=== PATIENT | male | born 2000 | race Caucasian/White ===

== ENCOUNTER 2020-01-04 08:58 | Emergency (ER) | payer OTHER ==
--- NOTE | 2020-01-04 10:17 | EDPHYS ---
Physician Documentation [facility] Name: Abdirizak Miller Age: 19 yrs Sex: Male : 2000 Arrival Date: 01/04/2020 Time: 09:03 Bed 5 Private MD: ED Physician Raghavendra May HPI: 01/03 10:19 This 19 yrs old Male presents to ER via Ambulatory with complaints of Knee kb Pain. 10:20 The patient presents with pain, that is acute, swelling, tenderness. The complaints kb affect the right knee. Context: The problem was sustained at home, resulted from an unknown cause, the patient can partially bear weight, uses crutches. Onset: The symptoms/episode began/occurred last night. Modifying factors: The symptoms are alleviated by nothing. the symptoms are aggravated by weight bearing. Associated signs and symptoms: Pertinent positives: swelling, warmth, Pertinent negatives calf tenderness, fever, nausea, numbness, rash, tingling, vomiting, weakness. Treatment prior to arrival includes: no previous treatment. Severity of symptoms: At their worst the symptoms were mild, moderate, in the emergency department the symptoms are unchanged. The patient has not experienced similar symptoms in the past. The patient has not recently seen a physician. Historical: - Allergies: 09:12 No Known Allergies; hb - Home Meds: 09:12 None [Active]; hb - PMHx: 09:12 None; hb - PSHx: 09:12 None; hb - Immunization history:: Adult Immunizations up to date. - Social history:: Smoking status: Patient denies any tobacco usage or history of. ROS: 10:13 Constitutional: Negative for fever, chills, and weight loss, ENT: Negative for injury, kb pain, and discharge, Neck: Negative for injury, pain, and swelling, Cardiovascular: Negative for chest pain, palpitations, and edema, Respiratory: Negative for shortness of breath, cough, wheezing, and pleuritic chest pain, Abdomen/GI: Negative for abdominal pain, nausea, vomiting, diarrhea, and constipation, Back: Negative for injury and pain, Neuro: Negative for headache, weakness, numbness, tingling, and seizure. 10:13 MS/extremity: Positive for erythema, pain, swelling, tenderness, warmth, of the right knee. Exam: 10:19 Constitutional: This is a well developed, well nourished patient who is awake, alert, kb and in no acute distress. Head/Face: Normocephalic, atraumatic. ENT: Nares patent. No nasal discharge, no septal abnormalities noted. Tympanic membranes are normal and external auditory canals are clear. Oropharynx with no redness, swelling, or masses, exudates, or evidence of obstruction, uvula midline. Mucous membranes moist. Neck: Trachea midline, no thyromegaly or masses palpated, and no cervical lymphadenopathy. Supple, full range of motion without nuchal rigidity, or vertebral point tenderness. No Meningismus. Chest/axilla: Normal chest wall appearance and motion. Nontender with no deformity. No lesions are appreciated. Cardiovascular: Regular rate and rhythm with a normal S1 and S2. No gallops, murmurs, or rubs. Normal PMI, no JVD. No pulse deficits. Respiratory: Lungs have equal breath sounds bilaterally, clear to auscultation and percussion. No rales, rhonchi or wheezes noted. No increased work of breathing, no retractions or nasal flaring. Abdomen/GI: Soft, non-tender, with normal bowel sounds. No distension or tympany. No guarding or rebound. No evidence of tenderness throughout. Back: No spinal tenderness. No costovertebral tenderness. Full range of motion. Neuro: Awake and alert, GCS 15, oriented to person, place, time, and situation. Cranial nerves II-XII grossly intact. Motor strength 5/5 in all extremities. Sensory grossly intact. Cerebellar exam normal. Normal gait. 10:19 Musculoskeletal/extremity: Extremities: grossly normal except: noted in the right knee: erythema, pain, swelling, tenderness, ROM: intact in all extremities, Circulation is intact in all extremities. Sensation intact. Weight bearing: can bear weight with assistance only, uses crutches. 10:19 Skin: Appearance: normal except for affected area, Color: erythematous, Temperature: hot. Vital Signs: 09:11 BP 126 / 75; Pulse 80; Resp 16; Temp 97.6; Pulse Ox 100% ; Weight 96.16 kg; Height 5 hb ft. 10 in. (177.80 cm); Pain 7/10; 09:11 Body Mass Index 30.42 (96.16 kg, 177.80 cm) hb MDM: 09:22 Patient medically screened. kb 10:14 Data reviewed: vital signs, nurses notes. Data interpreted: Pulse oximetry: on room air kb is 100 %. Interpretation: normal. Counseling: I had a detailed discussion with the patient and/or guardian regarding: the historical points, exam findings, and any diagnostic results supporting the discharge/admit diagnosis, radiology results, the need for outpatient follow up, a family practitioner, a orthopedic surgeon, to return to the emergency department if symptoms worsen or persist or if there are any questions or concerns that arise at home. ED course: Full ROM on right knee on exam.. 01/03 09:40 Order name: Knee Right 3 View XRAY kb Administered Medications: 10:16 Drug: Procious (7.5 mg-325 mg) 1 tabs Route: PO; hb 10:31 Follow up: Response: Medication administered at discharge. hb Disposition: 13:32 Co-signature as Attending Physician, Raghavendra May MD I agree with the assessment and kdr plan of care. Disposition: 01/04/20 10:16 Discharged to Home. Impression: Pain in right knee, Other bursitis of knee, right knee. - Condition is Stable. - Discharge Instructions: Bursitis, [id number], Knee Pain, Qwll-qu-Mrdo. - Prescriptions for Clindamycin HCl 300 mg Oral Capsule - take 1 capsule by ORAL route every 6 hours for 7 days; 28 capsule. Diclofenac Sodium 75 mg Oral Tablet, Delayed Release (E.C.) - take 1 tablet by ORAL route 2 times per day As needed; 30 tablet. - Medication Reconciliation Form, Thank You Letter, Antibiotic Education, Prescription Opioid Use form. - Follow up: Emergency Department; When: As needed; Reason: Worsening of condition. Follow up: Private Physician; When: 2 - 3 days; Reason: Recheck today's complaints, Continuance of care, Re-evaluation by your physician. Signatures: Dispatcher [employer] EDHannah Brooks, RIPENING ROOM OPERATOR-C RIPENING ROOM OPERATOR-Raghavendra Bardales MD MD [facility] Svitlana Mccurdy RN RN Corrections: (The following items were deleted from the chart) 10:01 09:41 CBC+H.LAB.BRZ ordered. EDMS EDMS 10: 09:41 BASIC METABOLIC PANEL+C.LAB.BRZ ordered. EDMS EDMS 10:01 09:41 C-REACTIVE PROTEIN+C.LAB.BRZ ordered. EDMS EDMS 10:01 09:41 WESTERGREN SEDRATE+H.LAB.BRZ ordered. EDMS EDMS 10:14 10:13 MS/extremity: Positive for pain, swelling, tenderness, warmth, of the right knee, kb kb 10:18 10:16 01/04/2020 10:16 Discharged to Home. Impression: Pain in right knee; Cellulitis kb of right lower limb. Condition is Stable. Forms are Medication Reconciliation Form, Thank You Letter, Antibiotic Education, Prescription Opioid Use. Follow up: Emergency Department; When: As needed; Reason: Worsening of condition. Follow up: Private Physician; When: 2 - 3 days; Reason: Recheck today's complaints, Continuance of care, Re-evaluation by your physician. kb 10:33 10:18 01/04/2020 10:16 Discharged to Home. Impression: Pain in right knee; Other hb bursitis of knee, right knee. Condition is Stable. Discharge Instructions: Bursitis, Grqi-im-Scno, Knee Pain, Fcqh-id-Qxbg. Prescriptions for Clindamycin HCl 300 mg Oral Capsule - take 1 capsule by ORAL route every 6 hours for 7 days; 28 capsule, Diclofenac Sodium 75 mg Oral Tablet, Delayed Release (E.C.) - take 1 tablet by ORAL route 2 times per day As needed; 30 tablet. and Forms are Medication Reconciliation Form, Thank You Letter, Antibiotic Education, Prescription Opioid Use. Follow up: Emergency Department; When: As needed; Reason: Worsening of condition. Follow up: Private Physician; When: 2 - 3 days; Reason: Recheck today's complaints, Continuance of care, Re-evaluation by your physician. kb
--- NOTE | 2020-01-04 10:17 | ER ---
Nurse's Notes [facility] Name: Abdirizak Miller Age: 19 yrs Sex: Male : 2000 Arrival Date: 01/04/2020 Time: 09:03 Bed 5 Private MD: Diagnosis: Pain in right knee;Other bursitis of knee, right knee Presentation: 01/03 09:11 Chief complaint: Right knee pain, swelling, and redness upon waking today. Denies hb injury. Coronavirus screen: The patient has NOT traveled to a country currently being monitored by the [facility] within the last 14 days. The patient has NOT had contact with any known and/or suspected case of coronavirus. Proceed with normal triage procedures. Ebola Screen: No symptoms or risks identified at this time. Initial Sepsis Screen: Does the patient meet any 2 criteria? No. Patient's initial sepsis screen is negative. Does the patient have a suspected source of infection? No. Patient's initial sepsis screen is negative. Risk Assessment: Do you want to hurt yourself or someone else? Patient reports no desire to harm self or others. 09:11 Method Of Arrival: Ambulatory hb 09:11 Acuity: SHANNAN 4 hb Triage Assessment: 09:12 General: Appears in no apparent distress. Behavior is calm, cooperative. Pain: Pain hb currently is 7 out of 10 on a pain scale. EENT: No signs and/or symptoms were reported regarding the EENT system. Neuro: Level of Consciousness is awake, alert, obeys commands, Oriented to person, place, time, situation. Cardiovascular: Capillary refill < 3 seconds Patient's skin is warm and dry. Respiratory: Airway is patent Respiratory effort is even, unlabored, Respiratory pattern is regular, symmetrical. GI: No signs and/or symptoms were reported involving the gastrointestinal system. : No signs and/or symptoms were reported regarding the genitourinary system. Derm: Skin is pink, warm \T\ dry. Musculoskeletal: swelling and redness noted to right knee. Historical: - Allergies: 09:12 No Known Allergies; hb - Home Meds: 09:12 None [Active]; hb - PMHx: 09:12 None; hb - PSHx: 09:12 None; hb - Immunization history:: Adult Immunizations up to date. - Social history:: Smoking status: Patient denies any tobacco usage or history of. Screenin:13 Abuse screen: Denies threats or abuse. Denies injuries from another. Nutritional hb screening: No deficits noted. Tuberculosis screening: No symptoms or risk factors identified. Fall Risk None identified. Assessment: 09:13 General: see triage assessment. hb 10:00 Reassessment: Patient appears in no apparent distress at this time. Patient and/or hb family updated on plan of care and expected duration. Pain level reassessed. Patient is alert, oriented x 3, equal unlabored respirations, skin warm/dry/pink. Vital Signs: 09:11 BP 126 / 75; Pulse 80; Resp 16; Temp 97.6; Pulse Ox 100% ; Weight 96.16 kg; Height 5 hb ft. 10 in. (177.80 cm); Pain 7/10; 09:11 Body Mass Index 30.42 (96.16 kg, 177.80 cm) hb ED Course: 09:03 Patient arrived in ED. mr 09:12 Triage completed. hb 09:13 Arm band placed on. hb 09:13 Patient has correct armband on for positive identification. Bed in low position. Call hb light in reach. Side rails up X 1. 09:22 Hannah Sandoval FNP-C [facility]. kb 09:22 Raghavendra May MD is Attending Physician. kb 09:23 Svitlana Mccurdy, ALEKSANDR is Primary Nurse. hb 10:13 Knee Right 3 View XRAY In Process Unspecified. EDMS 10:32 No provider procedures requiring assistance completed. Patient did not have IV access hb during this emergency room visit. Administered Medications: 10:16 Drug: Morgan (7.5 mg-325 mg) 1 tabs Route: PO; hb 10:31 Follow up: Response: Medication administered at discharge. hb Outcome: 10:16 Discharge ordered by . kb 10:32 Discharged to home with crutches, with family. hb 10:32 Condition: stable 10:32 Discharge instructions given to patient, Instructed on discharge instructions, follow up and referral plans. medication usage, Demonstrated understanding of instructions, follow-up care, medications, Prescriptions given X 2. 10:33 Patient left the ED. hb Signatures: Dispatcher [employer] EDMS Hannah Sandoval FNP-C FNP-Ckb Rivera, Mary mr Svitlana Mccurdy, RN RN hb Corrections: (The following items were deleted from the chart) 09:23 09:11 BP 126 / 75; Pulse 80bpm; Resp 60bpm; Pulse Ox 100%; Temp 97.6F; 96.16 kg; Height hb 5 ft. 10 in.; BMI: 30.4; Pain 7/10; hb
[2020-01-04] MEDS ORDERED: HYDROCODONE/APAP 7.5/325 MG TAB ONE (10:20)
[2020-01-04 10:44] VITALS: BP 126/75; TEMP 97.6; O2SAT 100
--- NOTE | 2020-01-04 10:45 | RAD REPORT ---
EXAM DESCRIPTION: RAD - Knee Right 3 View - 01/04/2020 10:10 am CLINICAL HISTORY: PAIN Pain and swelling COMPARISON: No comparisons FINDINGS: No fracture or dislocation. Moderate soft tissue swelling anterior to the patella and montano llar tendon.
[2020-01-07] MEDS ORDERED: SUCCINYLCHOLINE 20 MG/ML (10 ML) IV ONE (04:44)
[2020-01-07] MEDS ORDERED: ONDANSETRON 4 MG/2 ML VIAL ONE (04:44)
[2020-01-07] MEDS ORDERED: TETANUS & DIPHTHERIA TOX,ADULT 0.5 ML VIAL ONE (04:44)
== END 2020-01-04 10:33 | disposition home or self-care (01) ==
LOC: ER 08:58
DX: M71.561 Other bursitis, not elsewhere classified, right knee (principal)
CPT/HCPCS: 99283

== ENCOUNTER 2020-01-06 13:37 | Observation (INO) | payer OTHER ==
[2020-01-06] MEDS ORDERED: KETOROLAC 30 MG/ML INJ ONE (14:42)
[2020-01-06 15:00] LABS: Absolute Lymphocytes (CBC) 1.2 K/uL (0.7-4.9); Basophils % 0.4 % (0-1.3); Lymphocytes % 10.5 % (15.3-44.8); MPV 9.8 fL (7.6-11.3); RBC Red Blood Cell Count 4.86 M/uL (4.33-5.43)
--- NOTE | 2020-01-06 15:03 | ER ---
Nurse's Notes [facility] Name: Abdirizak Miller Age: 19 yrs Sex: Male : 2000 Arrival Date: 01/06/2020 Time: 13:40 Bed 5 Private MD: Diagnosis: Cellulitis of right lower limb;Other infective bursitis, right knee Presentation: 01/05 14:16 Chief complaint: Patient states: was seen here 2 days ago from bursitis on right knee em and was given clindamycin, reports more pain and redness to right leg, denies fever or feeling ill. Coronavirus screen: The patient has NOT traveled to a country currently being monitored by the [facility] within the last 14 days. The patient has NOT had contact with any known and/or suspected case of coronavirus. Ebola Screen: Patient negative for fever greater than or equal to 101.5 degrees Fahrenheit, and additional compatible Ebola Virus Disease symptoms Patient denies exposure to infectious person. Patient denies travel to an Ebola-affected area in the 21 days before illness onset. No symptoms or risks identified at this time. Initial Sepsis Screen: Does the patient meet any 2 criteria? HR > 90 bpm. Does the patient have a suspected source of infection? Yes: Skin breakdown/wound. Risk Assessment: Do you want to hurt yourself or someone else? Patient reports no desire to harm self or others. 14:16 Method Of Arrival: Ambulatory em 14:16 Acuity: SHANNAN 3 em Historical: - Allergies: 14:20 No Known Allergies; em - Home Meds: 14:20 diclofenac oral oral [Active]; clindamycin HCl 300 mg Oral cap [Active]; em - PMHx: 14:20 None; em - PSHx: 14:20 None; em - Immunization history:: Adult Immunizations up to date. - Social history:: Smoking status: Patient denies any tobacco usage or history of. Screenin:20 Abuse screen: Denies threats or abuse. Nutritional screening: No deficits noted. em Tuberculosis screening: No symptoms or risk factors identified. Fall Risk None identified. Assessment: 14:16 General: Appears in no apparent distress. comfortable, Behavior is calm, cooperative, em Denies fever. Pain: Complains of pain in right leg Pain currently is 6 out of 10 on a pain scale. Pain began 4 days ago. Neuro: Level of Consciousness is awake, alert, obeys commands, Oriented to person, place, time, situation, Appropriate for age. Cardiovascular: Capillary refill < 3 seconds Patient's skin is warm and dry. Respiratory: Airway is patent Respiratory effort is even, unlabored, Respiratory pattern is regular, symmetrical. Derm: Skin is intact, is healthy with good turgor, Skin is pink, warm \T\ dry. redness noted to the right knee/stewart area. Musculoskeletal: Capillary refill < 3 seconds, Range of motion: intact in all extremities. 15:28 Reassessment: Patient appears in no apparent distress at this time. No changes from tw2 previously documented assessment. Patient and/or family updated on plan of care and expected duration. Pain level reassessed. Patient is alert, oriented x 3, equal unlabored respirations, skin warm/dry/pink. 16:47 Reassessment: Patient appears in no apparent distress at this time. Patient and/or em family updated on plan of care and expected duration. Pain level reassessed. Patient is alert, oriented x 3, equal unlabored respirations, skin warm/dry/pink. Vital Signs: 14:16 BP 137 / 69; Pulse 96; Resp 18; Pulse Ox 99% on R/A; Weight 96.16 kg; Height 5 ft. 9 em in. (175.26 cm); Pain 3/10; 14:45 BP 115 / 69; Pulse 87; Resp 17; Pulse Ox 99% on R/A; tw2 15:12 Temp 98.8(O); em 16:46 BP 116 / 71; Pulse 83; Resp 18; Pulse Ox 100% on R/A; Pain 3/10; em 17:00 BP 110 / 61; Pulse 74; Resp 17; Pulse Ox 99% on R/A; tw2 14:16 Body Mass Index 31.31 (96.16 kg, 175.26 cm) em ED Course: 13:40 Patient arrived in ED. fj1 13:58 Bed in low position. Call light in reach. Adult w/ patient. tw2 13:59 Steve Waterman, ALEKSANDR is Primary Nurse. em 14:03 Ramesh Nguyen PA is PHCP. jr8 14:03 Danny Smith MD is Attending Physician. jr8 14:19 Triage completed. em 14:20 Arm band placed on. em 14:50 Initial lab(s) drawn, by me, sent to lab. Inserted saline lock: 20 gauge in left em forearm, using aseptic technique. Blood collected. 15:02 Jose Monreal DO is Hospitalizing Provider. jr8 16:58 No provider procedures requiring assistance completed. Patient admitted, IV remains in em place. Administered Medications: 14:50 Drug: NS 0.9% 1000 ml Route: IV; Rate: 1000 ml; Site: left antecubital; em 16:03 Follow up: IV Status: Completed infusion; IV Intake: 1000ml em 14:50 Drug: TORadol - Ketorolac 15 mg Route: IVP; Site: left antecubital; em 15:15 Follow up: Response: No adverse reaction; Marked relief of symptoms; Pain is decreased em 14:51 Drug: Cefepime 1 grams Route: IVPB; Rate: 200 ml/hr; Infused Over: 30 mins; Site: left em antecubital; 16:03 Follow up: Response: No adverse reaction; IV Status: Completed infusion; IV Intake: em 100ml 16:03 Drug: vancoMYCIN 1 grams Route: IVPB; Infused Over: 2 hrs; Site: left antecubital; em 17:30 Follow up: IV Status: Infusion continued upon admission tw2 Intake: 16:03 IV: 1000ml; Total: 1000ml. em 16:03 IV: 100ml; Total: 1100ml. em Outcome: 15:02 Decision to Hospitalize by Provider. jr8 17:00 Admitted to Med/surg accompanied by tech, family with patient, via wheelchair, room em 208, with chart, Report called to ALEKSANDR DURHAM 17:00 Condition: good 17:00 Instructed on the need for admit, Demonstrated understanding of instructions. 17:30 Patient left the ED. tw2 Signatures: Steve Waterman, RN RN Ramesh Nguyen PA PA jr8 Molly Harp RN RN tw2 Zeeshan Coffey fj
--- NOTE | 2020-01-06 15:03 | EDPHYS ---
Physician Documentation [facility] Name: Abdirizak Miller Age: 19 yrs Sex: Male : 2000 Arrival Date: 01/06/2020 Time: 13:40 Bed 5 Private MD: ED Physician Danny Smith HPI: 01/05 14:54 This 19 yrs old Male presents to ER via Ambulatory with complaints of LEG jr8 INFECTION/INFECTION SPREAD. 14:54 The patient presents with cellulitis of the right leg. Description: The affected area jr8 is moderate sized, erythematous, warm. Onset: The symptoms/episode began/occurred suddenly, today. Possible cause(s): unknown. Associated signs and symptoms: The patient has no apparent associated signs or symptoms. Modifying factors: the symptoms are alleviated by nothing, the symptoms are aggravated by movement, walking, pressure, touching. Severity of symptoms: At their worst the symptoms were moderate, in the emergency department the symptoms are unchanged. The patient has not experienced similar symptoms in the past. The patient has been recently seen by a physician:. Patient seen two days ago for bursitis of the right knee. Stated that he has been on Abx for 48 hours. This morning felt fatigued and had chills. Noted that lower leg is now red down to ankle. Historical: - Allergies: 14:20 No Known Allergies; em - Home Meds: 14:20 diclofenac oral oral [Active]; clindamycin HCl 300 mg Oral cap [Active]; em - PMHx: 14:20 None; em - PSHx: 14:20 None; em - Immunization history:: Adult Immunizations up to date. - Social history:: Smoking status: Patient denies any tobacco usage or history of. ROS: 14:54 Eyes: Negative for injury, pain, redness, and discharge, ENT: Negative for injury, jr8 pain, and discharge, Neck: Negative for injury, pain, and swelling, Cardiovascular: Negative for chest pain, palpitations, and edema, Respiratory: Negative for shortness of breath, cough, wheezing, and pleuritic chest pain, Abdomen/GI: Negative for abdominal pain, nausea, vomiting, diarrhea, and constipation, Back: Negative for injury and pain, MS/Extremity: Negative for injury and deformity, Neuro: Negative for headache, weakness, numbness, tingling, and seizure. 14:54 Skin: Positive for cellulitis, of the right leg. Exam: 14:54 Eyes: Pupils equal round and reactive to light, extra-ocular motions intact. Lids and jr8 lashes normal. Conjunctiva and sclera are non-icteric and not injected. Cornea within normal limits. Periorbital areas with no swelling, redness, or edema. ENT: Nares patent. No nasal discharge, no septal abnormalities noted. Tympanic membranes are normal and external auditory canals are clear. Oropharynx with no redness, swelling, or masses, exudates, or evidence of obstruction, uvula midline. Mucous membranes moist. Neck: Trachea midline, no thyromegaly or masses palpated, and no cervical lymphadenopathy. Supple, full range of motion without nuchal rigidity, or vertebral point tenderness. No Meningismus. Cardiovascular: Regular rate and rhythm with a normal S1 and S2. No gallops, murmurs, or rubs. Normal PMI, no JVD. No pulse deficits. Respiratory: Lungs have equal breath sounds bilaterally, clear to auscultation and percussion. No rales, rhonchi or wheezes noted. No increased work of breathing, no retractions or nasal flaring. Abdomen/GI: Soft, non-tender, with normal bowel sounds. No distension or tympany. No guarding or rebound. No evidence of tenderness throughout. Back: No spinal tenderness. No costovertebral tenderness. Full range of motion. MS/ Extremity: Pulses equal, no cyanosis. Neurovascular intact. Full, normal range of motion. Neuro: Awake and alert, GCS 15, oriented to person, place, time, and situation. Cranial nerves II-XII grossly intact. Motor strength 5/5 in all extremities. Sensory grossly intact. Cerebellar exam normal. Normal gait. 14:54 Skin: cellulitis, that is moderate, confluent, on the right anterior stewart down to ankle with portions of lateral calf infected as well , No increase in erythema to right knee. Still mildly swollen and tender to palpation . Vital Signs: 14:16 BP 137 / 69; Pulse 96; Resp 18; Pulse Ox 99% on R/A; Weight 96.16 kg; Height 5 ft. 9 em in. (175.26 cm); Pain 3/10; 14:45 BP 115 / 69; Pulse 87; Resp 17; Pulse Ox 99% on R/A; tw2 15:12 Temp 98.8(O); em 16:46 BP 116 / 71; Pulse 83; Resp 18; Pulse Ox 100% on R/A; Pain 3/10; em 17:00 BP 110 / 61; Pulse 74; Resp 17; Pulse Ox 99% on R/A; tw2 14:16 Body Mass Index 31.31 (96.16 kg, 175.26 cm) em MDM: 14:04 Patient medically screened. [facility] 15:01 Data reviewed: vital signs, nurses notes, lab test result(s), and as a result, I will jr admit patient. Data interpreted: Pulse oximetry: on room air is 99 %. Interpretation: normal. Counseling: I had a detailed discussion with the patient and/or guardian regarding: the historical points, exam findings, and any diagnostic results supporting the discharge/admit diagnosis, lab results, the need for further work-up and treatment in the hospital. Physician consultation: Jose Monreal DO was called at 15:01, was contacted at 15:01, regarding admission, to the medical/surgical unit. consult, patient's condition, and will see patient in ED. 01/05 14:28 Order name: CBC with Diff; Complete Time: 15:21 [facility] 01/05 14:28 Order name: Basic Metabolic Panel; Complete Time: 15:25 [facility] 01/05 14:28 Order name: Blood Culture Adult (2) [facility] 01/05 14:28 Order name: IV; Complete Time: 15:10 [facility] Administered Medications: 14:50 Drug: NS 0.9% 1000 ml Route: IV; Rate: 1000 ml; Site: left antecubital; em 16:03 Follow up: IV Status: Completed infusion; IV Intake: 1000ml em 14:50 Drug: TORadol - Ketorolac 15 mg Route: IVP; Site: left antecubital; em 15:15 Follow up: Response: No adverse reaction; Marked relief of symptoms; Pain is decreased em 14:51 Drug: Cefepime 1 grams Route: IVPB; Rate: 200 ml/hr; Infused Over: 30 mins; Site: left em antecubital; 16:03 Follow up: Response: No adverse reaction; IV Status: Completed infusion; IV Intake: em 100ml 16:03 Drug: vancoMYCIN 1 grams Route: IVPB; Infused Over: 2 hrs; Site: left antecubital; em 17:30 Follow up: IV Status: Infusion continued upon admission tw2 Disposition: 18:58 Co-signature as Attending Physician, Danny Smith MD Did not see or evaluate patient. ps1 Signature for administrative purposes. . Disposition: 01/06/20 15:02 Hospitalization ordered by Jose Monreal for Inpatient Admission. Preliminary diagnosis are Cellulitis of right lower limb, Other infective bursitis, right knee. - Bed requested for Telemetry/MedSurg (Inpatient). - Status is Inpatient Admission. tw2 - Condition is Stable. - Problem is new. - Symptoms are unchanged. Signatures: Dispatcher [employer] Steve Ellison, RN RN Ramesh Nguyen PA PA jr8 Molly Harp RN RN tw2 Danny Smith MD MD ps1 Laquita Bills Corrections: (The following items were deleted from the chart) 16:44 15:02 Hospitalization Ordered by Jose Monreal DO for Inpatient Admission. Preliminary eb diagnosis is Cellulitis of right lower limb; Other infective bursitis, right knee. Bed requested for Telemetry/MedSurg (Inpatient). Status is Inpatient Admission. Condition is Stable. Problem is new. Symptoms are unchanged. jr8 17:30 16:44 01/06/2020 15:02 Hospitalization Ordered by Jose Monreal DO for Inpatient tw2 Admission. Preliminary diagnosis is Cellulitis of right lower limb; Other infective bursitis, right knee. Bed requested for Telemetry/MedSurg (Inpatient). Status is Inpatient Admission. Condition is Stable. Problem is new. Symptoms are unchanged. eb
[2020-01-06] MEDS ORDERED: NA CHLORIDE 0.9% 1,000 ML ONE (15:06)
[2020-01-06 15:18] LABS: BUN Blood Urea Nitrogen 8 mg/dL (7-18); Bicarbonate 25 mmol/L (21-32); Glucose Level 95 mg/dL (74-106); Potassium 3.9 mmol/L (3.5-5.1); Sodium Level 139 mmol/L (136-145)
[2020-01-06] MEDS ORDERED: VANCOMYCIN/NS 1 gm 1 GM/250 ML BAG IVPB ONE (16:00)
--- NOTE | 2020-01-06 16:25 | P.HP ---
Certification for Inpatient Patient admitted to: Observation With expected LOS: <2 Midnights Patient will require the following post-hospital care: None Practitioner: I am a practitioner with admitting privileges, knowledge of patient current condition, hospital course, and medical plan of care. Services: Services provided to patient in accordance with Admission requirements found in Title 42 Section 412.3 of the Code of Federal Regulations Patient History Date of Service: 01/06/20 Primary Care Provider: Dr. Conway Reason for admission: Failed outpatient right lower extremity cellulitis History of Present Illness: 19-year-old male presented to the emergency room with failed right lower extremity cellulitis. 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 He is on his knees a lot for his work. Within the past week he noted some inflammation and erythema to the right knee. He reported some chills and felt feverish. He denied cough, shortness of breath, nausea, vomiting or diarrhea. Some bodyaches noted. He came to the ER about 2 days ago. At that time they gave him clindamycin. X- ray shows no foreign body. He was discharged. Since that time he has not improved. Erythema has worsened. Patient came to the ER for further evaluation. In ER patient evaluated. Vital signs stable. White count 11.5, hemoglobin 14. Sodium 139, potassium 3.9. Renal function stable. There has been a significant change in the cellulitis. Patient will be admitted for further evaluation and treatment. When I saw the patient ER, he did not appear septic. Patient with no prior medical problems. Large area of cellulitis to the right lower extremity noted. Patient previously on clindamycin. Allergies No Known Allergies Allergy (Unverified 10/02/12 16:23) Home medications list reviewed: Yes - Past Medical/Surgical History Diabetic: No Past Medical History: Patient denies medical history -: Irrigation and debridement of left lower extremity abscess Psychosocial/ Personal History: Patient is single. 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 - Family History Family History: Reviewed- Non-Contributory - Social History Smoking Status: Never smoker Alcohol use: Yes CD- Drugs: No Caffeine use: Yes Place of Residence: Home Review of Systems General: Chills, Sweats, Malaise, As per HPI Eyes: Unremarkable ENT: Unremarkable Respiratory: Unremarkable Cardiovascular: Unremarkable Gastrointestinal: Unremarkable Genitourinary: Unremarkable Musculoskeletal: Leg Pain, As per HPI Integumentary: As per HPI Neurological: Unremarkable Lymphatics: Unremarkable Physical Examination - Physical Exam General: Alert, In no apparent distress, Oriented x3, Cooperative HEENT: Atraumatic, Normocephalic, PERRLA, Other (Mouth appeared dry) Neck: Supple, No Thyromegaly Respiratory: Clear to auscultation bilaterally, Normal air movement Cardiovascular: Normal pulses, Regular rate/rhythm Gastrointestinal: Normal bowel sounds, Soft and benign, Non-distended, No tenderness, No masses, No rebound, No guarding Musculoskeletal: Other (15 x 25 cm large cellulitis extending from than right knee to just above the ankle area. Primarily to the anterior lateral areas. Erythema noted. No fluctuance noted. There is some areas of skin breakdown near knee) Integumentary: Other (As above) Neurological: Normal speech, Normal strength at 5/5 x4 extr, Normal tone, Normal affect Lymphatics: Inguinal lymphadenopathy - Studies Laboratory Data (last 24 hrs) 01/06/20 14:50: Sodium 139, Potassium 3.9, BUN 8, Creatinine 0.96, Glucose 95 01/06/20 14:50: WBC 11.5 H, Hgb 14.3, Hct 42.0, Plt Count 218 Assessment and Plan - Plan Impression: Failed outpatient right lower extremity cellulitis measuring 15 by 25 cm Mild dehydration Plan: Failed outpatient right lower extremity cellulitis measuring 15 by 25 cm: Patient will be admitted for further evaluation and treatment. Patient previously on clindamycin. Will start with vancomycin and cefepime to cover anaerobic organisms and MRSA. Blood cultures obtained. No need for wound culture at this time since there is no areas of fluctuance or discharge. Will provide medication for pain. Will provide DVT prophylaxis-Lovenox. Will start IV fluids as the patient appears slightly dehydrated. Will continue to reassess. Anticipate discharge in the next 24-48 hr pending clinical improvement. Mild dehydration: Will start IV fluids. Will monitor and adjust appropriately. Discharge Plan: Home Plan to discharge in: 24 Hours - Advance Directives Does patient have a Living Will: No Does patient have a Durable POA for Healthcare: No - Code Status/Comfort Care Code Status Assessed: Yes (Patient is full code) Time Spent Managing Pts Care (In Minutes): 55
[2020-01-06] MEDS ORDERED: HYDROCODONE/APAP 5/325 MG TAB PO PRN (17:34)
[2020-01-06] MEDS ORDERED: ACETAMINOPHEN 500 MG TAB PO PRN (17:34)
[2020-01-06] MEDS ORDERED: ONDANSETRON 4 MG/2 ML VIAL IV PRN (17:34)
[2020-01-06] MEDS ORDERED: TRAMADOL HCL 50 MG TAB PO PRN (17:34)
[2020-01-06] MEDS: NA CHLORIDE 0.9% 1,000 ML IV SCH (17:54)
[2020-01-06] MEDS: ENOXAPARIN 40 MG/0.4 ML SQ SCH (17:54)
[2020-01-06] MEDS: VANCOMYCIN 750 MG in NA CHLORIDE 0.9% 150 ML IVPB ONE ×2 (19:00→20:33)
[2020-01-06] MEDS: CEFEPIME/SWI 1gm 10 ML IVP SCH (20:30)
[2020-01-06] MEDS: MUPIROCIN 2% OINT 22GM TUBE TOP SCH (20:35)
[2020-01-06] MEDS ORDERED: CEFEPIME 1 GM/VIAL IV SCH (21:00)
[2020-01-07] MEDS: NA CHLORIDE 0.9% 1,000 ML IV SCH (03:36)
[2020-01-07] MEDS: VANCOMYCIN 1.75 GM in NA CHLORIDE 0.9% 500 ML IVPB SCH ×2 (05:03→16:12)
[2020-01-07 06:27] LABS: Absolute Lymphocytes (CBC) 1.6 K/uL (0.7-4.9); Basophils % 0.5 % (0-1.3); Hematocrit 39.7 % (39.6-49.0); Lymphocytes % 19.6 % (15.3-44.8); MPV 10.2 fL (7.6-11.3); RBC Red Blood Cell Count 4.54 M/uL (4.33-5.43)
[2020-01-07 06:32] LABS: BUN Blood Urea Nitrogen 7 mg/dL (7-18); Bicarbonate 26 mmol/L (21-32); Glucose Level 100 mg/dL (74-106); Sodium Level 143 mmol/L (136-145)
[2020-01-07] MEDS ORDERED: VANCOMYCIN 1 GM in NA CHLORIDE 0.9% 500 ML IVPB SCH (09:00)
[2020-01-07] MEDS: CEFEPIME/SWI 1gm 10 ML IVP SCH ×2 (09:28→20:23)
[2020-01-07] MEDS: ENOXAPARIN 40 MG/0.4 ML SQ SCH (09:28)
[2020-01-07] MEDS: MUPIROCIN 2% OINT 22GM TUBE TOP SCH ×2 (10:00→20:23)
--- NOTE | 2020-01-07 10:03 | P.PN ---
Subjective Date of Service: 01/07/20 Primary Care Provider: Dr. Conway Chief Complaint: Failed outpatient right lower extremity cellulitis Subjective: Improving Physical Examination - Vital Signs Temperature: 97.9 F Blood Pressure: 117/62 Pulse: 80 Respirations: 18 Pulse Ox (%): 99 - Physical Exam General: Alert Respiratory: Clear to auscultation bilaterally, Normal air movement Cardiovascular: Normal pulses, Regular rate/rhythm Gastrointestinal: Normal bowel sounds, No tenderness, No masses, No rebound, No guarding Integumentary: Other (Erythema to the right lower extremity significantly improved. Less warmth noted. Less swelling. Overall improved.) - Studies Laboratory Data (last 24 hrs) 01/06/20 14:50: Sodium 139, Potassium 3.9, BUN 8, Creatinine 0.96, Glucose 95 01/06/20 14:50: WBC 11.5 H, Hgb 14.3, Hct 42.0, Plt Count 218 Medications List Reviewed: Yes Assessment & Plan Discharge Plan: Home Plan to discharge in: 24 Hours Physician Review Additional Text: Impression: Failed outpatient right lower extremity cellulitis measuring 15 by 25 cm Mild dehydration Plan: Failed outpatient right lower extremity cellulitis measuring 15 by 25 cm: Overall improved. Continue IV vancomycin and cefepime. Blood cultures negative so far. Anticipate improvement over the next 24 hr. Likely discharge tomorrow. Mild dehydration: Patient with good oral intake. Will discontinue IV fluids. Will monitor and adjust appropriately. Time Spent Managing Pts Care (In Minutes): 55
[2020-01-08] MEDS: VANCOMYCIN 1.75 GM in NA CHLORIDE 0.9% 500 ML IVPB SCH (04:21)
[2020-01-08 05:59] LABS: Absolute Lymphocytes (CBC) 1.9 K/uL (0.7-4.9); Basophils % 0.8 % (0-1.3); Hematocrit 41.7 % (39.6-49.0); Lymphocytes % 21.8 % (15.3-44.8); RBC Red Blood Cell Count 4.82 M/uL (4.33-5.43)
[2020-01-08 06:12] LABS: BUN Blood Urea Nitrogen 6 mg/dL (7-18); Bicarbonate 27 mmol/L (21-32); Glucose Level 90 mg/dL (74-106); Potassium 3.6 mmol/L (3.5-5.1); Sodium Level 141 mmol/L (136-145)
[2020-01-08] MEDS: ENOXAPARIN 40 MG/0.4 ML SQ SCH (09:00)
[2020-01-08 09:38] VITALS: O2SAT 99
[2020-01-08] MEDS: MUPIROCIN 2% OINT 22GM TUBE TOP SCH (09:47)
[2020-01-08] MEDS: CEFEPIME/SWI 1gm 10 ML IVP SCH (09:48)
--- NOTE | 2020-01-08 11:03 | P.DS ---
Admission Date: 01/06/20 Discharge Date: 01/08/20 Primary Care Provider: Dr. Conway Disposition: ROUTINE DISCHARGE Discharge Condition: GOOD Reason for Admission: Failed outpatient right lower extremity cellulitis Consultations: None Procedures: Medical problem list: Failed outpatient right lower extremity cellulitis measuring 15 by 25 cm Mild dehydration Brief History of Present Illness: 19-year-old male presented to the emergency room with failed right lower extremity cellulitis. 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 He is on his knees a lot for his work. Within the past week he noted some inflammation and erythema to the right knee. He reported some chills and felt feverish. He denied cough, shortness of breath, nausea, vomiting or diarrhea. Some bodyaches noted. He came to the ER about 2 days ago. At that time they gave him clindamycin. X- ray shows no foreign body. He was discharged. Since that time he has not improved. Erythema has worsened. Patient came to the ER for further evaluation. In ER patient evaluated. Vital signs stable. White count 11.5, hemoglobin 14. Sodium 139, potassium 3.9. Renal function stable. There has been a significant change in the cellulitis. Patient will be admitted for further evaluation and treatment. When I saw the patient ER, he did not appear septic. Patient with no prior medical problems. Large area of cellulitis to the right lower extremity noted. Patient previously on clindamycin. Hospital Course: Patient presented with failed outpatient right lower extremity cellulitis. Patient was given IV antibiotic therapy. Patient has done well. Erythema has significantly improved. Pain also significantly improved. White count and pro calcitonin negative. Patient afebrile. At discharge patient will continue with Augmentin 500 mg twice daily and doxycycline 100 mg twice daily for 10 days. Patient will continue with Bactroban to the area twice daily including nares and umbilicus. Patient may clean area with antibacterial soap and water daily. Recommend follow up with PCP in 1 week to follow up this hospitalization. Patient is to refrain from putting too much pressure on the knees especially at work. Patient may take Tylenol as needed for pain. Vital Signs/Physical Exam: Temp Pulse Resp BP Pulse Ox 97.6 F 70 18 104/51 L 99 01/08/20 08:00 01/08/20 08:00 01/08/20 08:00 01/08/20 08:00 01/08/20 08:00 General: Alert, In no apparent distress, Oriented x3, Cooperative HEENT: Atraumatic Neck: Supple Respiratory: Clear to auscultation bilaterally, Normal air movement Cardiovascular: Normal pulses, Regular rate/rhythm Gastrointestinal: Normal bowel sounds, Soft and benign, Non-distended Musculoskeletal: No tenderness, No warmth Integumentary: Other (Erythema has significantly resolved. Only erythema mainly to the knee cap region. No fluctuance noted. No evidence of abscess.) Neurological: Normal speech, Normal strength at 5/5 x4 extr, Normal tone, Normal affect Laboratory Data at Discharge: WBC 8.7 K/uL (4.3-10.9) 01/08/20 05:06 Hgb 14.1 g/dL (13.6-17.9) 01/08/20 05:06 Hct 41.7 % (39.6-49.0) 01/08/20 05:06 Plt Count 237 K/uL (152-406) 01/08/20 05:06 Sodium 141 mmol/L (136-145) 01/08/20 05:06 Potassium 3.6 mmol/L (3.5-5.1) 01/08/20 05:06 BUN 6 mg/dL (7-18) L 01/08/20 05:06 Creatinine 0.88 mg/dL (0.55-1.3) 01/08/20 05:06 Glucose 90 mg/dL (74-106) 01/08/20 05:06 Home Medications: Amoxicillin/Potassium Clav [Augmentin 500-125 Tablet] 1 each PO BID #20 tablet 01/08/20 Doxycycline Hyclate 100 mg PO BID #20 tablet 01/08/20 Mupirocin Oint [Bactroban 2% Ointment*] 1 appl TOP BID #1 tube 01/08/20 New Medications: Amoxicillin/Potassium Clav [Augmentin 500-125 Tablet] 1 each PO BID #20 tablet Doxycycline Hyclate 100 mg PO BID #20 tablet Mupirocin Oint [Bactroban 2% Ointment*] 1 appl TOP BID #1 tube Patient Discharge Instructions: 1. Follow up with PCP in 1 week to follow up this hospitalization. 2. Patient presented with failed outpatient right lower extremity cellulitis. Patient was given IV antibiotic therapy. Patient has done well. Erythema has significantly improved. Pain also significantly improved. White count and pro calcitonin negative. Patient afebrile. At discharge patient will continue with Augmentin 500 mg twice daily and doxycycline 100 mg twice daily for 10 days. Patient will continue with Bactroban to the area twice daily including nares and umbilicus. Patient may clean area with antibacterial soap and water daily. Recommend follow up with PCP in 1 week to follow up this hospitalization. Patient is to refrain from putting too much pressure on the knees especially at work. Patient may take Tylenol as needed for pain. Diet: Regular Activity: Ad ana Time spent managing pt's care (in minutes): 55
[2020-01-08 14:02] VITALS: TEMP 98
[2020-01-08] MEDS ORDERED: VANCOMYCIN 2 GM in NA CHLORIDE 0.9% 500 ML IVPB SCH (16:00)
[2020-01-08 16:20] VITALS: BMI 40.4
[2020-01-08 17:06] VITALS: BP 122/61
== END 2020-01-08 17:22 | disposition home or self-care (01) ==
LOC: ER 13:37 → ERHOLD 16:10 → 2ND 17:01
PROVIDERS: ADMIT Family Medicine; ATTEND Family Medicine
DX: L03.115 Cellulitis of right lower limb (principal); E86.0 Dehydration
CPT/HCPCS: 96365; 96367; 87040 ×2; 85025 ×3; 80048 ×3; 36415 ×2; 80202; 84145; 96375; 99285; 96366; J1650 ×2; J3370; J0692 ×2; J7040 ×3; J7030 ×3; G0378 ×4